=== PATIENT | female | born 1970 | race Caucasian/White ===

== ENCOUNTER → 2018-06-17 | Outpatient (CLI) | payer MEDICARE, OTHER ==
[~2018-06-17] MED LIST: ACET325; Bactrim 400-801 EACH PO; CEPH250A PO; CYCL10 PO; HYDACE5; HYDACE5 PO; IBUP800 PO; NAPR550 PO; OMEP20ER PO; PARO10 PO; PROM25 PO; VICODIN HP 10-1 EACH PO
[2018-06-21 16:07] LABS: HPV 16 Negative (Negative); HPV 18 Negative (Negative); HPV OTHER HR TYPES Negative (Negative)
== END | disposition home or self-care (01) ==
LOC: LAB SHORT 16:04 → LAB 16:04
PROVIDERS: Family Medicine
DX: R87.810 Cervical high risk human papillomavirus (HPV) DNA test positive (principal)
CPT/HCPCS: 87624; G0145

== ENCOUNTER 2021-04-30 06:50 | Day surgery (SDC) | payer MEDICARE, OTHER ==
[~2021-04-30] VITALS: Ht 170.2 cm; Wt 115.0 kg
[~2021-04-30 06:50] MED LIST changes: +ALBU8HFA2 INH
[2021-04-30] MEDS ORDERED: IBUP800 PO (07:15)
[2021-04-30] MEDS ORDERED: ACET325 (07:15)
--- NOTE | 2021-04-30 07:37 | NUR ---
04/30/21 0737 Jennifer Keys PT BED IN LOWEST POSITION. CALL LIGHT WITHIN REACH. NO QUESTIONS OR CONCERNS AT THIS TIME.
== END 2021-04-30 08:52 | disposition home or self-care (01) ==
LOC: ORSCSDS 06:50
PROVIDERS: Orthopaedic Surgery
PROC: 01N50ZZ Release Median Nerve, Open Approach (ICD-10-PCS; principal; 2021-04-30 08:00)
DX: G56.01 Carpal tunnel syndrome, right upper limb (principal); J45.909 Unspecified asthma, uncomplicated; M06.9 Rheumatoid arthritis, unspecified; F17.210 Nicotine dependence, cigarettes, uncomplicated; Z79.899 Other long term (current) drug therapy
CPT/HCPCS: J0690; J2250; J3010; J7120